=== PATIENT | male | born 1965 | race Caucasian/White ===

== ENCOUNTER 2017-01-13 19:21 | Inpatient (IN) ==
[2017-01-13] MEDS ORDERED: Aspirin 81 MG TAB.CHEW PO ONE (19:39)
[2017-01-13] MEDS ORDERED: 0.9 % Sodium Chloride 500 ML IVC ONE (19:39)
[2017-01-13 19:45] LABS: Basophils % 0.2 %; Eosinophils # 0.1 K/mcL (0.0-0.6); Eosinophils % 0.7 %; Hemoglobin 18.2 g/dL (12.9-16.9); Immature Granulocytes % 0.5 % (0-4); Lymphocytes # 1.7 K/mcL (0.6-4.6); Lymphocytes % 16.6 %; Mean Corpuscular HGB Conc 32.7 g/dL (31.6-35.5); Mean Corpuscular Volume 85.6 fL (83.0-100.0); Mean Platelet Volume 10.8 fL (9.4-12.4); Monocytes # 0.7 K/mcL (0.0-1.3); Monocytes % 6.8 %; Neutrophils # 7.8 K/mcL (1.6-8.9); Platelet Count 228 K/mcL (140-400); Red Blood Count 6.51 M/mcL (4.19-5.50); Red Cell Distribution Width 15.2 % (11.5-14.5); Segmented Neutrophils % 75.2 %
[2017-01-13 19:46] LABS: Hematocrit 55.7 % (37.5-50.1)
[2017-01-13] MEDS ORDERED: *HR* Morphine 2 MG/ML SYRINGE IVP STA (19:54)
[2017-01-13] MEDS: Nitroglycerin 0.4 MG TAB.SUBL SL PRN ×3 (19:55→20:05)
[2017-01-13 19:58] LABS: BUN/Creatinine Ratio 16 (6-26); Blood Urea Nitrogen 18 mg/dL (8-26); Calcium 10.6 mg/dL (8.6-10.8); Carbon Dioxide 23 mEq/L (19-29); Chloride 109 mEq/L (98-109); Glucose 124 mg/dL (70-99); Osmolality,Calculated 297 (280-300); Potassium 3.6 mEq/L (3.5-4.5); Sodium 142 mEq/L (136-145); eGFR For African Americans > 60 (> 60); eGFR For Non-African Americans > 60 (> 60)
[2017-01-13] MEDS ORDERED: *HR* Heparin 5,000 UNIT/ML VIAL IVP ONE (20:23)
[2017-01-13] MEDS ORDERED: *HR* Heparin 5,000 UNIT/ML VIAL IVP PRN ×2 (20:23)
[2017-01-13 20:24] LABS: INR 1.1; Prothrombin Time 11.9 Seconds (9.4-12.1)
[2017-01-13 20:27] LABS: Activated Partial Thrombo Time 28.4 Seconds (26.0-36.0)
[2017-01-13] MEDS ORDERED: Heparin 25,000 UNIT/500 ML D5W 25,000 UNIT/500 ML MLS IVC SCH (20:30)
[2017-01-13] MEDS: Nitroglycerin 25 MG/250 ML INFUS..BTL IVC SCH (20:49)
[2017-01-13] MEDS ORDERED: traMADol 50 MG TABLET PO ONE (21:03)
--- NOTE | 2017-01-13 21:06 | Emergency Department Note ---
Disposition Clinical Impression: NSTEMI (non-ST elevated myocardial infarction) Chest pain Qualifiers: Chest pain type: unspecified Qualified Code(s): R07.9 - Chest pain, unspecified Disposition: Admitted As Inpatient Referrals: NO,PCP [Primary Care Provider] - Forms: ED Satisfaction Letter Chest Pain HPI - General Chief Complaint: ED Chest Pain Stated Complaint: Chest pain Time Seen by Provider: 01/13/17 19:33 Source: patient Limitations: no limitations Vital Signs Reviewed: Yes Nursing Notes Reviewed: Yes - History of Present Illness HPI Narrative: Patient here for evaluation of chest pain. Chest pain started approximately 3 hours prior to arrival. Patient has pain in the center of his chest that feels like his previous "heart attacks". Patient states that he has had 2 small heart attacks in the past that have not had further evaluation. Patient states that he has not had a cardiac stress test or cardiac catheterization. Patient does not take daily aspirin but took 3 aspirin prior to arrival. Patient states that after the onset of pain it is worse with exertion and better with rest. Patient has walker in the room and states that he was unable to walk secondary to the pain. Severity scale (1-10): 6 - Related Data Home Medications Medication Instructions Recorded Confirmed Lisinopril [Zestril] 10 mg PO DAILY 02/08/16 02/08/16 Previous Rx's Medication Instructions Recorded traMADol [Ultram] 100 mg PO TID PRN 7 Days 04/25/16 predniSONE [PredniSONE] 60 mg PO NOW 5 Days 05/03/16 traMADol [Ultram] 50 mg PO Q6HR #8 tablet 06/03/16 traMADol [Ultram] 50 mg PO Q6HR PRN #20 tablet 06/12/16 traMADol [Ultram] 100 mg PO TID #18 tablet 06/15/16 traMADol [Ultram] 1 - 2 tab-cap PO TID PRN #18 tablet 06/22/16 traMADol [Ultram] 50 mg PO Q6HR #16 tablet 06/25/16 Tramadol HCl [Ultram] 50 mg PO TID PRN #12 tab 07/04/16 Tramadol HCl [Ultram] 100 mg PO TID PRN #8 tab 07/09/16 Ibuprofen [Motrin] 800 mg PO Q8HR #30 tablet 12/15/16 Tramadol HCl [Ultram] 50 mg PO TID PRN #6 tab 12/15/16 Allergies Allergy/AdvReac Type Severity Reaction Status Date / Time celecoxib [From Celebrex] Allergy Anaphylaxis Verified 12/20/16 14:51 dexamethasone [From Decadron] Allergy Anaphylaxis Verified 12/20/16 14:51 ketorolac [From Toradol] Allergy Hives Verified 12/20/16 14:51 rofecoxib [From Vioxx] Allergy Anaphylaxis Verified 12/20/16 14:51 Review of Systems: CONSTITUTIONAL: No weight loss, fever, chills, weakness or fatigue. HEENT: Eyes: No visual changes. Ears, Nose, Throat: No hearing loss, difficulty talking or unable to swallow. SKIN: No rash or itching. CARDIOVASCULAR: Chest pain. No palpitations or edema. RESPIRATORY: shortness of breath No cough or sputum. GASTROINTESTINAL: No anorexia, nausea, vomiting or diarrhea. No abdominal pain or blood. GENITOURINARY: No burning on urination or hematuria. NEUROLOGICAL: No headache, dizziness, syncope, paralysis, ataxia, numbness or tingling in the extremities. No change in bowel or bladder control. MUSCULOSKELETAL: No muscle pain, back pain, joint pain or stiffness. Chest Pain PMH - Past Medical History Medical history: Reports: arthritis, hypertension, migraine, myocardial infarction, other Surgical history: Reports: cholecystectomy, orthopedic, other Psychiatric history: Reports: no psych history - Social History Smoking Status: Current every day smoker Alcohol use: Reports: none Drug use: Reports: none Physical Exam General appearance: NAD, conversant Eyes: anicteric sclerae, moist conjunctivae; PERRL HENT: Atraumatic; oropharynx clear with moist mucous membranes and no mucosal ulcerations Neck: Normal inspection; Trachea midline; FROM, supple Lungs: CTA, with normal respiratory effort and no intercostal retractions CV: RRR, no MRGs Abdomen: Soft, non-tender; no rebound or gaurding Extremities: No peripheral edema or extremity lymphadenopathy Skin: Normal temperature; no rash, ulcers or lesions Psych: Appropriate mood and affect Neuro: alert and oriented to person, place and time - General Limitations: no limitations General appearance: alert, in no apparent distress Course - Reevaluation(s) Reevaluation #1: Patient's blood pressure significantly elevated greater than 220. Patient has chest pain in his chest that feels like previous PA with radiation. Patient received initial chest pain workup as well as sublingual nitroglycerin which partially relieved pain. Patient does have a history of chronic pain medications and has been requesting Dilaudid. At this point he has an elevated troponin at 0.04 3 hours after the onset of chest pain therefore a nitro drip secondary to returning of his chest pain as well as blood pressure control has been ordered. Heparin due to concern and STEMI. There is no sign of ST elevation or need for activation of cardiac catheter lab on EKG. We will continue to monitor. - Consultations Consultation #1: Discussed with Dr. MAURICIO. Patient accepted for admission. Requests d-dimer Vital Signs Temperature 0 F L 01/13/17 19:24 Pulse Rate 113 01/13/17 19:24 Respiratory Rate 18 01/13/17 19:24 Blood Pressure 204/141 01/13/17 19:24 O2 Sat by Pulse Oximetry 91 01/13/17 19:24 Temperature 0 F L 01/13/17 19:24 Pulse Rate 110 01/13/17 21:27 Respiratory Rate 18 01/13/17 21:27 Blood Pressure 161/114 01/13/17 21:27 O2 Sat by Pulse Oximetry 98 01/13/17 21:27 Oxygen Delivery Oxygen Delivery Room Air Chest Pain - Medical Records Medical records reviewed: Yes I reviewed the patient's medical records. - Lab Data Lab results reviewed: Yes I reviewed the patient's lab results. Result diagrams: 01/13/17 19:35 01/13/17 19:35 Lab Results 01/13/17 01/13/17 01/13/17 Range/Units 19:35 19:35 19:35 WBC 10.4 (4.3-11.1) K/mcL RBC 6.51 H (4.19-5.50) M/mcL Hgb 18.2 H (12.9-16.9) g/dL Hct 55.7 H (37.5-50.1) % MCV 85.6 (83.0-100.0) fL MCH 28.0 (28.0-33.3) pg MCHC 32.7 (31.6-35.5) g/dL RDW 15.2 H (11.5-14.5) % Plt Count 228 (140-400) K/mcL MPV 10.8 (9.4-12.4) fL Immature Gran % 0.5 (0-4) % Seg Neutrophils % 75.2 % Lymphocytes % 16.6 % Monocytes % 6.8 % Eosinophils % 0.7 % Basophils % 0.2 % Neutrophils # 7.8 (1.6-8.9) K/mcL Lymphocytes # 1.7 (0.6-4.6) K/mcL Monocytes # 0.7 (0.0-1.3) K/mcL Eosinophils # 0.1 (0.0-0.6) K/mcL Basophils # 0.0 (0.0-0.2) K/mcL PT (9.4-12.1) Seconds INR APTT (26.0-36.0) Seconds Sodium 142 (136-145) mEq/L Potassium 3.6 (3.5-4.5) mEq/L Chloride 109 (98-109) mEq/L Carbon Dioxide 23 (19-29) mEq/L BUN 18 (8-26) mg/dL Creatinine 1.13 (0.72-1.25) mg/dL Est GFR ( Amer) > 60 (> 60) Est GFR (Non-Af Amer) > 60 (> 60) BUN/Creatinine Ratio 16 (6-26) Glucose 124 H (70-99) mg/dL Calculated Osmolality 297 (280-300) Calcium 10.6 (8.6-10.8) mg/dL Troponin I 0.04 H* (0-0.03) ng/mL 01/13/17 Range/Units 20:13 WBC (4.3-11.1) K/mcL RBC (4.19-5.50) M/mcL Hgb (12.9-16.9) g/dL Hct (37.5-50.1) % MCV (83.0-100.0) fL MCH (28.0-33.3) pg MCHC (31.6-35.5) g/dL RDW (11.5-14.5) % Plt Count (140-400) K/mcL MPV (9.4-12.4) fL Immature Gran % (0-4) % Seg Neutrophils % % Lymphocytes % % Monocytes % % Eosinophils % % Basophils % % Neutrophils # (1.6-8.9) K/mcL Lymphocytes # (0.6-4.6) K/mcL Monocytes # (0.0-1.3) K/mcL Eosinophils # (0.0-0.6) K/mcL Basophils # (0.0-0.2) K/mcL PT 11.9 (9.4-12.1) Seconds INR 1.1 APTT 28.4 (26.0-36.0) Seconds Sodium (136-145) mEq/L Potassium (3.5-4.5) mEq/L Chloride (98-109) mEq/L Carbon Dioxide (19-29) mEq/L BUN (8-26) mg/dL Creatinine (0.72-1.25) mg/dL Est GFR ( Amer) (> 60) Est GFR (Non-Af Amer) (> 60) BUN/Creatinine Ratio (6-26) Glucose (70-99) mg/dL Calculated Osmolality (280-300) Calcium (8.6-10.8) mg/dL Troponin I (0-0.03) ng/mL - Radiology Data Radiology results reviewed: Yes I reviewed the patient's radiology results. - EKG Data EKG attestation: Yes I reviewed and interpreted this EKG. EKG results narrative: EKG shows sinus tachycardia with a rate of 1:15. Patient has no significant ST elevations or depressions. Patient's EKG with tachycardia and nonspecific ST T- wave changes. Critical Care Time Critical Care Time: Yes Total Critical Care Time: 45 Attestation: Critical care performed: Time is exclusive of separately billable procedures. Time includes: direct patient care, patient reassessment, coordination of patient care, interpretation of data (laboratory data, radiology data, and respiratory data), review of patient's medical records, medical consultation and documentation of patient care. Procedures included in critical care time: Procedures excluded from critical care time: Attestation Statement - Attestation Attestation: I, Wander Lara MD, personally evaluated this patient and discussed their management with the resident physician. I reviewed the resident's note and agree with the documented findings, medical decision making, and plan of care. 51-year-old male presents to the emergency department with a complaint of left- sided chest pain which started about 3 hours prior to arrival. Pain radiates to the left neck and left jaw and to the left arm. Some shortness of breath with the pain. Some nausea. No vomiting or diaphoresis. No palpitations. Patient states that he has a history of 2 MIs in the past and this feels similar. Patient repeatedly asking for Dilaudid. On examination patient is a well-developed well-nourished male in no acute distress. He is alert and oriented 3. There is no cyanosis or diaphoresis. Chest is nontender to palpation. Breath sounds are clear and equal bilaterally. Heart regular rate and rhythm. Abdomen is soft and nontender with normal bowel sounds. No pedal edema. Labs reviewed. Troponin 0.04. No acute ischemic changes on EKG. Chest x-ray negative. Patient placed on nitroglycerin drip and heparin drip. The hospitalist, Dr. Mauricio, was consulted and accepted admission of the patient.
[2017-01-13] MEDS ORDERED: *HR* HYDROmorphone (PF) 1 MG/ML SYRINGE IVP ONE (22:53)
[2017-01-13] MEDS ORDERED: Ondansetron 4 MG/2 ML VIAL IVP ONE (23:03)
[2017-01-13] MEDS ORDERED: Nicotine 2 MG GUM BC STA (23:04)
[2017-01-13] MEDS ORDERED: 0.9 % Sodium Chloride 1,000 ML IVC SCH (23:45)
[2017-01-13] MEDS ORDERED: Ondansetron 4 MG/2 ML VIAL IVP PRN (23:49)
[2017-01-13] MEDS ORDERED: Acetaminophen 325 MG TABLET PO PRN (23:49)
[2017-01-13] MEDS ORDERED: Naloxone 0.4 MG/ML INJ IVP PRN (23:49)
--- NOTE | 2017-01-13 23:55 | Internal Med History&Physical ---
Date of Encounter: 01/14/17 Time of Encounter: 23:53 Assessment and Plan (1) Hypertensive emergency Current visit: Yes Status: Acute The patient had blood pressure greater than 220 on presentation to the emergency department, chest pain and signs of myocardial ischemia possibly secondary to hypertensive emergency. We will continue with nitroglycerin drip. Blood pressure is better controlled. Titrated drip to decrease to a systolic blood pressure by 20%. We will also use IV labetalol as needed. (2) NSTEMI (non-ST elevated myocardial infarction) Current visit: Yes Status: Acute Patient presented with chest pain, EKG shows nonspecific changes. Troponin is mildly elevated. We will treat him with heparin drip and nitroglycerin drip. Will obtain echocardiogram and consult cardiology. (3) DVT prophylaxis Current visit: Yes Status: Acute Currently fully anticoagulated. (4) Osteoarthritis Current visit: Yes Status: Acute We will order his home dose of tramadol and [place]. Qualifiers: Osteoarthritis location: multiple joints Osteoarthritis type: primary Qualified Code(s): M15.0 - Primary generalized (osteo)arthritis Internal Medicine - H&P: HPI Chief complaint: Chest pain Admitted From: Emergency Dept Plans for Post Hospital Care: Home History of present illness: Mr. Beckford is a 51 year old male with past medical history significant for osteoarthritis, essential hypertension and coronary artery disease status post MS with no recent cardiac workup who presented to the hospital for evaluation of chest pain. He states that his chest pain started around 4 PM today. The pain is worse with exertion. He describes that as located in the precordial area radiating pain to the left side of the jaw, squeezing in nature, severe, associated with nausea and shortness of breath when it gets at its worst. He says he has had two minor myocardial infarctions in the recent past but never had a catheterization. Additionally, he reports back pain, generalized joint aches and pains, denies history of bleeding and bruising and blood clots, denies dysuria or hematuria, denies vomiting diarrhea, denies skin rashes. A 10 point review of systems was otherwise negative. Family history was positive for myocardial infarction in the patient's father who of a massive MS at age 48. Past Med Surg Social Fam HX - Past Medical History Medical history: arthritis, hypertension, migraine, myocardial infarction, other Psychiatric history: no psych history - Past Surgical History Surgical History: cholecystectomy, orthopedic, other - Social History Smoking Status: Current every day smoker Smokeless Tobacco Status: No Alcohol use: none Drug use: none - Family History Mother Hx Family Cardiac Disorders: Yes (MS, Stents) Hx Family Neurologic Disorders: Yes (Stroke) Internal Medicine - H&P: Meds HYDROcodone/Acet 5/325 mg [[place] 5-325 mg] 1 tab PO Q6H PRN 01/13/17 [History] Losartan [Cozaar] 50 mg PO BID 01/13/17 [History] traMADol [Ultram] 100 mg PO Q6HR 01/13/17 [History] Allergies celecoxib [From Celebrex] Allergy (Verified 12/20/16 14:51) Anaphylaxis dexamethasone [From Decadron] Allergy (Verified 12/20/16 14:51) Anaphylaxis ketorolac [From Toradol] Allergy (Verified 12/20/16 14:51) Hives rofecoxib [From Vioxx] Allergy (Verified 12/20/16 14:51) Anaphylaxis All Systems PM: A 10-system review of systems was performed and is negative for pertinent findings except as documented above in the HPI. - Constitutional Vitals: Temp Pulse Resp BP Pulse Ox 0 F L 88 18 118/106 90 01/13/17 22:21 01/13/17 23:33 01/13/17 23:33 01/13/17 23:33 01/13/17 23:33 General appearance: Present: A&O X 3, no acute distress - Eye Eye exam: Present: PERRL, conjuntiva pink, sclera anicteric Pupils: Present: PERRL - Respiratory Respiratory exam: Present: CTAB. Absent: accessory muscle use, rales, rhonchi, wheezes - Cardiovascular Cardiovascular exam: Present: RRR, +S1, +S2. Absent: diastolic murmur, gallop, rubs, systolic murmur - GI/Abdominal GI/Abdominal exam: Present: normal bowel sounds, soft, no peritoneal signs. Absent: distended, tenderness - Extremities Exam Extremities exam: Present: warm, radial pulses palpable and symetrical. Absent : calf tenderness, cyanotic, pedal edema - Neurological Exam Neurological exam: Present: CN II-XII intact, oriented X3, no focal deficits. Absent: pronater drift, facial droop, speech deficit - Skin Skin exam: Present: dry, intact Internal Med - H&P Results - Labs CBC & Chem 7: 01/14/17 00:11 01/14/17 00:11 - EKG Data -: EKG Interpreted by Myself (Sinus tachycardia 1 15 bpm, Q waves in leads 3 and aVF, unchanged from a pr) - EKG Data When compared to previous EKG: there is no significant change
[2017-01-14 00:22] LABS: Basophils # 0.1 K/mcL (0.0-0.2); Basophils % 0.4 %; Eosinophils # 0.1 K/mcL (0.0-0.6); Eosinophils % 0.7 %; Hematocrit 51.6 % (37.5-50.1); Immature Granulocytes % 0.8 % (0-4); Lymphocytes # 2.6 K/mcL (0.6-4.6); Lymphocytes % 21.2 %; Mean Corpuscular HGB Conc 31.8 g/dL (31.6-35.5); Mean Corpuscular Hemoglobin 27.4 pg (28.0-33.3); Mean Corpuscular Volume 86.3 fL (83.0-100.0); Monocytes # 0.9 K/mcL (0.0-1.3); Monocytes % 7.5 %; Neutrophils # 8.5 K/mcL (1.6-8.9); Platelet Count 243 K/mcL (140-400); Red Blood Count 5.98 M/mcL (4.19-5.50); Red Cell Distribution Width 14.6 % (11.5-14.5); Segmented Neutrophils % 69.4 %
[2017-01-14 00:23] LABS: Hemoglobin 16.4 g/dL (12.9-16.9)
[2017-01-14 00:41] LABS: BUN/Creatinine Ratio 14 (6-26); Blood Urea Nitrogen 20 mg/dL (8-26); Calcium 9.9 mg/dL (8.6-10.8); Carbon Dioxide 21 mEq/L (19-29); Chloride 107 mEq/L (98-109); Chol/HDL Ratio 8.3 (0-4.9); Cholesterol 232 mg/dL (< 200); Glucose 148 mg/dL (70-99); HDL Cholesterol 28 mg/dL (40-59); LDL Cholesterol,Calculated 171 mg/dL (0-99); Magnesium 1.9 mg/dL (1.6-2.6); Osmolality,Calculated 293 (280-300); Potassium 3.6 mEq/L (3.5-4.5); Sodium 139 mEq/L (136-145); Triglycerides 164 mg/dL (< 150); eGFR For African Americans > 60 (> 60); eGFR For Non-African Americans 51 (> 60)
[2017-01-14] MEDS: *HR* Morphine 2 MG/ML SYRINGE IVP PRN ×2 (01:01→03:58)
[2017-01-14] MEDS ORDERED: *HR* HYDROcodone/Acet 5/325 mg TABLET PO PRN (01:17)
[2017-01-14] MEDS ORDERED: *HR* Labetalol 20 MG/4 ML SYRINGE IVP PRN (01:20)
[2017-01-14] MEDS: traMADol 50 MG TABLET PO SCH ×3 (03:43→11:29)
[2017-01-14] MEDS ORDERED: 0.9 % Sodium Chloride 1,000 ML IVC SCH (08:00)
[2017-01-14] MEDS ORDERED: Nicotine 21 MG PATCH.TD24 TD SCH (09:00)
[2017-01-14] MEDS ORDERED: Aspirin 81 MG TAB.CHEW PO SCH (09:30)
[2017-01-14] MEDS ORDERED: Metoprolol XL (24 HR) Succ 25 MG TAB.ER.24H PO SCH (09:49)
[2017-01-14] MEDS ORDERED: amLODIPine 5 MG TABLET PO SCH (10:15)
--- NOTE | 2017-01-14 10:44 | Cardiology Consult Note ---
<Adriana Hernandez - Last Filed: 01/14/17 10:35> Date of Encounter: 01/14/17 Time of Encounter: 08:00 Assessment and Plan (1) Elevated troponin Current Visit: Yes Status: Acute Per cardiology: -ELevated troponin 0.04, 0.04, 0.02. -Troponins flat and adynamic in the setting of extreme hypertension and OFELIA. -ECG with no ischemic changes. -ADmits to chest pain on admission, currently chest pain free. -CHest pain occured at rest, but was worsened with excertion. Relieved with rest. Patient reports intermittent excertional chest pain for the past year. -Reported 2 MIs Previously with no ischemic work up. -Of note baseline creatinine 0.8-1.1. Current creatinine 1.44. -Echo pending. -On heparin drip and nitro drip. -DO not suspect NSTEMI, suspect demand ischemia related to hypertension and OFELIA. No cardiac rehab warranted at this time. -Will attempt to obtain old records from [facility] regarding previous MIs. -Concerning symptoms for CAD and given patient's medical history and family history. -NO LHC today due to worsening renal function, IV fluids ordered per primary service. PLan for LHC tomorrow pending renal function. Will make NPO after midnight. -Started asa, statin, beta william. -Pateint states understanding and agrees with plan. Patient previously threatened to sign out AMA educated on risk of MN and if leaves prior to proper cardiac work up. At this time, patient agreeable to stay inpatient. (2) Chest pain Current Visit: Yes Status: Acute Per cardiology: -Episode of chest pain at rest, worsening with excertion, relieved with rest. -Patient states was sharp in nature. -Reports excertional chest pain intermittently for the past year. -Currently chest pain free. -ON nitro drip at 30mcg/min. -PLan for possible LHC tomorrow. Qualifiers: Chest pain type: other chest pain Qualified Code(s): R07.89 - Other chest pain; R07.8 - Other chest pain (3) Hypertension Current Visit: Yes Status: Chronic Per cardiology: -KNown history of hypertension. -BPs 220s systolic on admission. -Currently on nitro drip. -Bps currently 120-150s systolic. -ARB on hold due to OFELIA. -Will add beta william. -Will start home dose of amlodipine. -Will continue to monitor. -Wean nitro to off and BP tolerates. Qualifiers: Hypertension type: essential hypertension Qualified Code(s): I10 - Essential (primary) hypertension (4) Acute kidney injury Current Visit: Yes Status: Acute Per cardiology: -Baseline creatinine 0.8-1.1. -Creatinine at time of admission 1.13, currently 1.44. -IV fluids ordered per primary service. -Management per primary service. -Will monitor for worsening renal function. (5) Tobacco abuse Current Visit: Yes Status: Chronic Per cardiology: -Known tobacco abuse. -Patient reports smoking 1 pack per day for greater than 30 years. -Patient states recently cut back to 0.5pack per day. -Nicotine patch ordered. Patient requesting nicotine gum. -I spent 3-5 minutes reviewing smoking cessation education with patient. -Will start nicotine gum. Discussion w patient/family: The assessment and plan as outlined above was discussed with the patient who expressed understanding and agreement. All questions were answered. Thank you for involving us in the care of your patient. Please call with any questions. Discussed and reviewed with . History of Present Illness Consult date: 01/14/17 Requesting physician: Yosi Mauricio Consult reason: NSTEMI Chief complaint: chest pain History of present illness: Mr. Beckford is a 51 year old male with a relevant past medical history of HTN, hyperlipidemia, smoking 1 pack per day for greater than 30 years, reported MN, and chronic pain. Patient reports family history of CAD with his father dying at 44 due to MN. Patient states he has had "2 minor heart attacks" prior. Patient states first was one year ago at [facility] with reported no ischemic work up. Patient states second was two months ago at [facility] again with reported no ischemic work up. Patient denies previous cath or previous stress testing. Patient states he was sitting at rest when chest pain started. Patient states it was on the left side of his chest and radiated down left arm. Patient states it was sharp in nature. Patient states pain was worsening with excertion and relieved with rest. Patient states he took asa prior to coming to ER. Patient states he went to [facility] first and they reportedly accused him of being a drug addict/dealer so he left and came to [facility]. Patient denies shortness of breath or fatigue. Patient denies current chest pain. Past Med Surg Social Fam HX - Past Medical History Attestation: Yes The following information was validated with the patient. Source: patient, old records reviewed Medical history: arthritis, hypertension, migraine, myocardial infarction, other Psychiatric history: no psych history - Past Surgical History Surgical History: cholecystectomy, orthopedic, other - Social History Smoking Status: Current every day smoker Smokeless Tobacco Status: No Alcohol use: none Drug use: none - Family History Mother Hx Family Cardiac Disorders: Yes (MN, Stents) Hx Family Neurologic Disorders: Yes (Stroke) Medications and Allergies HYDROcodone/Acet 5/325 mg [[place] 5-325 mg] 1 tab PO Q6H PRN 01/13/17 [History] Losartan [Cozaar] 50 mg PO BID 01/13/17 [History] traMADol [Ultram] 100 mg PO Q6HR 01/13/17 [History] Allergies celecoxib [From Celebrex] Allergy (Verified 12/20/16 14:51) Anaphylaxis dexamethasone [From Decadron] Allergy (Verified 12/20/16 14:51) Anaphylaxis ketorolac [From Toradol] Allergy (Verified 12/20/16 14:51) Hives rofecoxib [From Vioxx] Allergy (Verified 12/20/16 14:51) Anaphylaxis All Systems Review: A 10-system review of systems was performed and is negative for pertinent findings except as documented above in the HPI. - Cardiovascular Cardiovascular: as per HPI, chest pain at rest, chest pain with exertion Physical Examination Vital Signs, Last 4 Hours Temp Pulse Resp BP Pulse Ox 01/14/17 07:55 82 18 143/98 94 01/14/17 07:30 98.1 F 80 16 154/94 94 General: Conversant, No Apparent Distress HEENT: Atraumatic, Normocephaly, Mucus Membranes Moist Neck: No JVD, Normal carotid pulses Cardiac: Reg Rate and Rhythm, Normal S1 and S2, No Murmur Lungs: Normal Breath Sounds, No Wheeze, Rales, Rhonchi Neuro: Alert and responsive, No focal deficits noted Abdomen: Soft, Non-Tender Skin: No rashes noted on visualized skin Musculoskeletal: No Chest Wall Tenderness Extremities: No Clubbing, No Cyanosis, No Edema, Normal Pulses Results 01/14/17 00:11 01/14/17 00:11 Lab Results Impressions Chest X-Ray 01/13/17 19:39 IMPRESSION: No acute process. D/ / Sammy Gan MD / Sammy Gan MD Interpreting Provider: Sammy Gan MD Active Medications Acetaminophen (Tylenol) 650 mg PO Q6HR PRN PRN Reason: Mild Pain (1-3) Stop: 07/15/17 23:50 Acetaminophen/Hydrocodone Bitart ([place] 5-325 Mg) 1 tab PO Q6H PRN PRN Reason: mild to moderate pain Stop: 07/16/17 01:18 Last Admin: 01/14/17 10:04 Dose: 1 tab Amlodipine Besylate (Norvasc) 5 mg PO DAILY [facility] PRN Reason: Protocol Stop: 07/16/17 10:16 Last Admin: 01/14/17 10:30 Dose: 5 mg Aspirin (Aspirin) 81 mg PO DAILY [facility] Stop: 07/16/17 09:31 Last Admin: 01/14/17 10:04 Dose: 81 mg Atorvastatin Calcium (Lipitor) 40 mg PO HS [facility] Stop: 07/16/17 21:01 Heparin Sodium (Porcine) (Heparin) 4,000 unit IVP Q6HR PRN PRN Reason: SEE COMMENTS Stop: 07/15/17 20:24 Last Admin: 01/14/17 07:56 Dose: 4,000 unit Heparin Sodium (Porcine) (Heparin) 2,000 unit IVP Q6H PRN PRN Reason: SEE COMMENTS Stop: 07/15/17 20:24 Heparin Sodium/Dextrose (Heparin 25,000 Unit/500 Ml D5w) 25,000 unit in 500 mls @ 19.989 mls/hr IVC .Q24H KIRT; 9.58 UNIT/KG/HR PRN Reason: Protocol Stop: 07/15/17 20:31 Last Titration: 01/14/17 07:46 Dose: 16 unit/kg/hr, 33.4 mls/hr Nitroglycerin (Nitroglycerin) 25 mg in 250 mls @ 24 mls/hr IVC .[id number] [facility] PRN Reason: 40 MCG/MIN Stop: 07/15/17 20:31 Last Infusion: 01/14/17 10:31 Dose: 15 mcg/min, 9 mls/hr Sodium Chloride (0.9 % Sodium Chloride) 1,000 mls @ 100 mls/hr IVC .Q10H [facility] Stop: 07/16/17 08:01 Last Admin: 01/14/17 10:04 Dose: 100 mls/hr Labetalol HCl (Labetalol) 20 mg IVP Q1H PRN PRN Reason: Hypertension Stop: 07/16/17 01:21 Last Admin: 01/14/17 03:58 Dose: 20 mg Losartan Potassium (Cozaar) 50 mg PO BID [facility] PRN Reason: Protocol Stop: 07/16/17 01:31 Last Admin: 01/14/17 03:42 Dose: Not Given Metoprolol Succinate (Toprol Xl) 25 mg PO DAILY [facility] Stop: 07/16/17 09:50 Last Admin: 01/14/17 10:10 Dose: 25 mg Morphine Sulfate (Morphine Sulfate) 2 mg IVP Q4HR PRN PRN Reason: Severe Pain (7-10) Stop: 07/15/17 23:50 Last Admin: 01/14/17 03:58 Dose: 2 mg Naloxone HCl (Narcan) 0.4 mg IVP Q2MIN PRN PRN Reason: Opioid Reversal Stop: 07/15/17 23:50 Nicotine (Nicoderm) 21 mg TD DAILY [facility] PRN Reason: Protocol Stop: 07/16/17 09:01 Last Admin: 01/14/17 10:04 Dose: 21 mg Nitroglycerin (Nitroglycerin) 0.4 mg SL Q5MIN PRN PRN Reason: Chest Pain Stop: 07/15/17 19:41 Last Admin: 01/13/17 20:05 Dose: 0.4 mg Ondansetron HCl (Zofran) 4 mg IVP Q8HR PRN PRN Reason: Nausea And Vomiting Stop: 07/15/17 23:50 Last Admin: 01/14/17 08:02 Dose: 4 mg Tramadol HCl (Ultram) 100 mg PO Q6HR [facility] Stop: 07/16/17 06:01 Last Admin: 01/14/17 04:46 Dose: 100 mg Laboratory Tests 02/08/16 12/15/16 01/13/17 09:27 15:52 19:35 WBC Hgb Creatinine 1.10 1.07 1.13 Troponin I Triglycerides Cholesterol LDL Cholesterol, Calc HDL Cholesterol 01/13/17 01/14/17 01/14/17 19:35 00:11 00:11 WBC 12.2 H Hgb 16.4 D Creatinine Troponin I 0.04 H* 0.04 H* Triglycerides Cholesterol LDL Cholesterol, Calc HDL Cholesterol 01/14/17 01/14/17 00:11 05:22 WBC Hgb Creatinine 1.44 H Troponin I 0.02 Triglycerides 164 H Cholesterol 232 H LDL Cholesterol, Calc 171 H HDL Cholesterol 28 L - Imaging and Cardiology Chest Xray: report reviewed Echo: pending - EKG Interpretation EKG results cardiology: personally reviewed (ECG with sinus tachycarida, HR 115. ), other (Telemetry reviewed with average HR 89, sinus rhythm. PVCS and PACs noted.) Consult Discharge Plan - Plan Referrals: NO,PCP [Primary Care Provider] - <Nicolasa Anderson - Last Filed: 01/14/17 14:05> Date of Encounter: 01/14/17 Assessment and Plan Discussion w patient/family: The assessment and plan as outlined above was discussed with the patient and/or family members who expressed understanding and agreement. All questions were answered. Thank you for involving us in the care of your patient. Please call with any questions. History of Present Illness History of present illness: Mr. Beckford is a 51 year old male All Systems Review: A 10-system review of systems was performed and is negative for pertinent findings except as documented above in the HPI. Physical Examination Vital Signs, Last 4 Hours Pulse BP Pulse Ox 01/14/17 13:34 98 129/80 92 01/14/17 12:35 81 136/85 92 01/14/17 12:00 82 123/81 01/14/17 11:30 83 116/77 94 01/14/17 11:00 77 115/75 95 01/14/17 10:52 94 01/14/17 10:35 85 130/89 95 01/14/17 10:07 91 130/92 94 Results 01/14/17 00:11 01/14/17 00:11 Lab Results 01/14/17 01/14/17 01/14/17 00:11 00:11 00:11 WBC 12.2 H Hgb 16.4 D Hct 51.6 H Plt Count 243 APTT Sodium 139 Potassium 3.6 Chloride 107 Carbon Dioxide 21 BUN 20 Creatinine 1.44 H Glucose 148 H Calcium 9.9 Magnesium 1.9 Troponin I 0.04 H* 01/14/17 01/14/17 01/14/17 00:12 05:22 05:22 WBC Hgb Hct Plt Count APTT 53.1 H D 39.2 H Sodium Potassium Chloride Carbon Dioxide BUN Creatinine Glucose Calcium Magnesium Troponin I 0.02 01/14/17 12:11 WBC Hgb Hct Plt Count APTT Sodium Potassium Chloride Carbon Dioxide BUN Creatinine Glucose Calcium Magnesium Troponin I 0.03 - Attending Attestation I examined this patient and my medical decision-making was reviewed with the CART DRIVER/PA/Advanced Practice Nurse/Resident Physician. I agree with the documented findings, disposition and treatment plan. Mr. Beckford presents with flat, mild elevation of troponins in setting of significant hypertension and ARF. ECG is without ischemic changes and echo demonstrates preserved LV function. Suspect troponin elevation may be due to demand ischemia. However, he describes both typical and atypical chest pain over the past several months. He has risk factors for CAD and reported history of MN. We have discussed possibility of stress test vs C with the patient. He is pleasantly adamant that he is going to go home today. He doesn't want to be here. I warned the patient that he would be leaving against medical advice and he is at risk for and MN. He expressed understanding. He will make his decision whether to stay later today.
[2017-01-14] MEDS ORDERED: Nicotine 2 MG GUM BC PRN (11:37)
[2017-01-14] MEDS ORDERED: Nicotine 2 MG GUM BC SCH (12:00)
[2017-01-14] MEDS: Nitroglycerin 25 MG/250 ML INFUS..BTL IVC SCH (12:34)
--- NOTE | 2017-01-14 13:43 | Internal Med Progress Note ---
Date of Encounter: 01/14/17 Time of Encounter: 10:45 - Assessment and plan (1) Hypertensive emergency Current Visit: Yes Status: Acute Assessment and plan: Patient's blood pressure is much improved. We will wean off nitroglycerin drip and continue his usual antihypertensives with the exception of losartan. Will hold losartan due to worsening renal function. High risk for complications due to use of nitroglycerin drip (2) NSTEMI (non-ST elevated myocardial infarction) Current Visit: Yes Status: Suspected Assessment and plan: suspected non-ST elevation DE. Cardiology has been consulted. Troponin trending down. On IV heparin. We will follow cardiology recommendations. (3) Osteoarthritis Current Visit: Yes Status: Chronic Assessment and plan: Continue tramadol and [place] Qualifiers: Osteoarthritis location: multiple joints Osteoarthritis type: primary Qualified Code(s): M15.0 - Primary generalized (osteo)arthritis (4) DVT prophylaxis Current Visit: Yes Status: Acute (5) Acute kidney injury Current Visit: Yes Status: Acute Assessment and plan: Creatinine worse today at 1.44. We will gently hydrate as patient may undergo cardiac catheterization. Follow renal function closely. - Subjective Interval history: Patient not having any chest pain at this time. Having headache due to use of nitroglycerin intravenously. Denies any shortness of breath. - Constitutional Vitals: Temp Pulse Resp BP Pulse Ox 98.1 F 81 18 136/85 92 01/14/17 07:30 01/14/17 12:35 01/14/17 07:55 01/14/17 12:35 01/14/17 12:35 General appearance: Present: mild distress, A&O X 3, obese, answers questions appropriately - Respiratory Respiratory exam: Present: CTAB. Absent: accessory muscle use, rales, rhonchi, wheezes - Cardiovascular Cardiovascular exam: Present: RRR, +S1, +S2. Absent: diastolic murmur, gallop, rubs, systolic murmur - GI/Abdominal GI/Abdominal exam: Present: normal bowel sounds, soft, no peritoneal signs. Absent: distended, tenderness - Neurological Exam Neurological exam: Present: alert, CN II-XII intact, oriented X3, no focal deficits. Absent: facial droop, speech deficit - Skin Skin exam: Present: dry, intact Internal Medicine: Result - Labs CBC & Chem 7: 01/14/17 00:11 01/14/17 00:11 Labs: Short CBC 01/14/17 Range/Units 00:11 WBC 12.2 H (4.3-11.1) K/mcL Hgb 16.4 D (12.9-16.9) g/dL Hct 51.6 H (37.5-50.1) % Plt Count 243 (140-400) K/mcL Neutrophils # 8.5 (1.6-8.9) K/mcL BMP 01/14/17 00:11 Sodium 139 Potassium 3.6 Chloride 107 Carbon Dioxide 21 BUN 20 Creatinine 1.44 H Glucose 148 H Calcium 9.9 Cardiac Enzymes 01/14/17 01/14/17 01/14/17 Range/Units 00:11 05:22 12:11 Troponin I 0.04 H* 0.02 0.03 (0-0.03) ng/mL - ABG Interpretation ABG results: PT/INR, D-dimer PT 11.9 Seconds (9.4-12.1) 01/13/17 20:13 D-Dimer 445 ng/mLFEU (0-500) 01/13/17 20:13 Consult Discharge Plan - Plan Referrals: NO,PCP [Primary Care Provider] - - Attending Attestation This document has been at least partially created by [employer] recognition technology by Dr. Yanes. Errors in grammar, wording or other phrases may exist. If errors are found after the documentation is signed, they will be addressed individually in the addendum section of this document when appropriate.
[2017-01-14 13:48] VITALS: BP 129/80
[2017-01-15] MEDS ORDERED: Metoprolol XL (24 HR) Succ 25 MG TAB.ER.24H PO SCH (09:00)
--- NOTE | 2017-01-16 18:53 | Electrocardiograph Report ---
[facility] [facility] Test Date: 2017-01-13 Pat Name: Brian Houma Department: 104 Room: 2N13 Gender: M Front Desk Team Member: : [id number] Requested By: Kyle Frazier Order Number: [id number] Reading MD: Dylan Lutz MD Measurements Intervals [place] Rate: 115 P: 43 OR: 181 QRS: -10 QRSD: 73 T: 76 QT: 333 QTc: 401 Interpretive Statements SINUS TACHYCARDIA INFERIOR MYOCARDIAL INFARCTION, PROBABLY OLD ANTEROSEPTAL MYOCARDIAL INFARCTION, OF INDETERMINATE AGE Electronically Signed On 01-16-2017 18:51:41 EDT by Dylan Lutz MD
== END 2017-01-14 14:04 | disposition home or self-care (01) | DRG 190 ==
LOC: 2NNU 19:21 → EMEROO 19:21 → 2NNU 23:25
PROVIDERS: ADMIT Internal Medicine; ATTEND Internal Medicine